=== PATIENT | male | born 1975 | race Caucasian/White ===

== ENCOUNTER 2021-07-17 10:02 | Emergency (ER) | payer OTHER ==
[~2021-07-17] VITALS: Ht 167.6 cm; Wt 104.3 kg
[~2021-07-17 10:02] MED LIST: CIPRO500 MG PO; FLOVENT DISKUS50 MCG INH; FLUTICASONE PRO16 GM NAS; METRONIDAZOLE500 MG PO; PERCOCET 5-3251 EACH PO; ZOFRAN ODT4 MG SL
[2021-07-17] MEDS ORDERED: LOSARTAN POTAS100 MG PO (11:25)
== END 2021-07-17 13:50 | disposition home or self-care (01) ==
LOC: ED 10:02
DX: E83.42 Hypomagnesemia (principal); J45.909 Unspecified asthma, uncomplicated; Z88.2 Allergy status to sulfonamides; Z79.899 Other long term (current) drug therapy
CPT/HCPCS: 80053; 83735; 85025; 99283

== ENCOUNTER 2023-01-06 13:43 | Inpatient (IN) | payer OTHER ==
[~2023-01-06] VITALS: Ht 167.6 cm; Wt 102.8 kg
[~2023-01-06 13:43] MED LIST changes: +CEPHALEXIN500 M1 PO; +LOSARTAN POTAS100 MG PO
--- OUTSIDE RECORDS SUMMARY | 2023-01-06 13:50 | XMS ---
PreManage Notification: KOBE ESPINAL Security Inside Sales Territory Manager Events No recent Security Events currently on file CRITERIA MET - [facility] - 2 Visits in 30 Days CARE PROVIDERS Kj Sanchez MD Family Medicine Current PHONE: Unknown RADHA FAITH [facility] Current FAMILY PHONE: [phone] Janet has no Care Guidelines for this patient. Danette VISIT COUNT (12 MO.) 2 [facility] TOTAL 2 NOTE: Visits indicate total known visits. ED/UCC VISIT TRACKING (12 MO.) 01/06/2023 13:43 [facility] [place] TYPE: Emergency COMPLAINT: - SHAKEY 12/25/2022 09:04 [facility] [place] TYPE: Emergency COMPLAINT: - BURNING URINATION, ABD PAIN DIAGNOSES: - Allergy status to sulfonamides - Other termite treater helper (current) drug therapy - Unspecified asthma, uncomplicated - Urinary tract infection, site not specified - Dysuria INPATIENT VISIT TRACKING (12 MO.) No inpatient visits to display in this time frame [email or web address]
[2023-01-06 18:05] VITALS: BP 107/57
[2023-01-06 20:00] VITALS: BP 102/66
[2023-01-06 21:00] VITALS: BP 103/70
[2023-01-06 22:00] VITALS: BP 100/70
[2023-01-06 23:00] VITALS: BP 100/72
[2023-01-06 23:25] VITALS: BP 100/72
[2023-01-07] VITALS (18 sets, daily range): BP systolic 98–153; BP diastolic 69–95
--- NOTE | 2023-01-07 06:15 | CONS ---
[facility] [address] [place], [place] [address] Signed DATE OF CONSULTATION: 01/06/2023 CHIEF COMPLAINT: Chills with shaking. HISTORY OF PRESENT ILLNESS: Kobe is a 47-year-old gentleman, who has history of recurring diverticulitis. He was actually hospitalized once for IV antibiotics. After that he recognizes the symptoms, so he is able to get some antibiotics and normally settles down. He was waiting to see one of the surgeons over in [place], [place], for colonoscopy. In the meantime, his job with the [employer] asked [place]. That worked out well for him, since his mother happens to live here in [place], [place]. He has been having trouble now for about a month with kind of retropubic area of pain. He has been having trouble urinating. The UA came back so called dirty. He took 2 weeks of Cipro and it never got better. He tried Pyridium and it did nothing. He tried some other medications, that were not sure, and he said nothing has worked. He was at work today and he got cold and was shaking. He had to come to the emergency room. In the emergency room, his white count is normal, but his urine is dirty and his liver function tests are elevated. The albumin is little low at 2.7. He is COVID negative. His lactic acid was high at 5.5 and is now down to 2.4 with some resuscitation antibiotics. Chest x-ray was negative. The CT scan abdomen and pelvis showed some central lobar nodules in the bilateral lung srinivasan, most likely infectious. He seems to have some thickening in the gallbladder wall with some pericholecystic fluid. He has pops-ay-lxdxxjlh left hydroureter. There is a fluid collection measuring 4.7 x 2.1 cm between the urinary bladder and sigmoid colon. He has inflammatory changes of both gutters and around both kidneys. The left worse than the right. I have been called by the ER physician with the information of sigmoid diverticulitis and the fluid collection behind his bladder. The rest of this was new to me currently. In the meantime, he has been admitted to our ICU. Overall, he says he feels better. Amazingly, he does not seem to have much abdominal pain, other than in the retropubic area. He said overall he seems to be better. His mom is with him along with our nurse. PAST MEDICAL HISTORY: Asthma, sinusitis, diverticulitis x1 requiring hospitalization, and after that he has been able to use outpatient antibiotics. He is awaiting colonoscopy. PAST SURGICAL HISTORY: Sinus surgery, corneal transplant at age 38, tonsils. SOCIAL HISTORY: He does not smoke. I think he does some marijuana. He likes to drink some Whisky and little beer every day. He is single and has no children. He does have dogs. He Electronically Signed By: KENDALL GEORGE MD 01/07/23 0615 PATIENT NAME: KOBE ESPINAL CONSULTATION DATE OF : 75 REPORT #: [id number] PHYSICIAN: KENDALL GEORGE MD PCP: KJ SANCHEZ MD REPORT IS CONFIDENTIAL AND NOT TO BE RELEASED WITHOUT AUTHORIZATION [address] [address] Signed actually lives in [place], [place], and therefore prefers the [facility] in [place], [place]. His mother is Stacy at [phone]. She happens to live here in [place], [place]. His primary care provider is Dr. Kj Sanchez, in [place], [place]. FAMILY HISTORY: None. REVIEW OF SYSTEMS: He had 10 systems reviewed and he told me about his recurring diverticulitis. ALLERGIES: Sulfa. MEDICATIONS: Fluconazole and losartan. PHYSICAL EXAMINATION: VITAL SIGNS: Blood pressure is 107/57, heart rate 115, respiratory rate 15, his temperature is 100. He is 95% on room air. He is 5 feet 6 inches at 102 kg with a body mass index of 36. GENERAL: Kobe is a 47-year-old gentleman, lying supine semi-recumbent in his ICU bed. Amazingly, he is alert, awake, and interactive. He has a cold cuff on his forehead, but he is not diaphoretic currently. He does not appear flushed. LUNGS: Clear to auscultation bilaterally. HEART: Tachycardic, but no murmur. ABDOMEN: Amazingly his abdomen is soft and flat with some minimal kind of retropubic tenderness. LABORATORY DATA: His white blood count is 9.8, neutrophils 80, hemoglobin 10.9. Creatinine is up a little bit at 1.4. Lactic acid was 5.5, it is down to 2.4. Urine showed white blood cells, leukocyte esterase, and some rare bacteria. He said he is denying any pneumaturia. Urine culture and blood cultures are pending. Total bilirubin was normal at 0.2, but the AST and ALT are up a little bit along with the alkaline phosphatase and albumin is down a little at 2.7. COVID negative. RADIOGRAPHIC STUDIES: The chest x-ray is unremarkable. The CT scan abdomen and pelvis shows the centrilobar nodules in the bilateral lower lung srinivasan, which may be infectious. He may have some gallbladder wall thickening and pericholecystic fluid. He has xpyl-vo-wgrhikbd left hydroureter. He has fluid collection measuring 4.7 x 2.1 cm between the urinary bladder and the sigmoid colon with inflammatory changes. He has perinephric inflammation in the left more than the right. Electronically Signed By: KENDALL GEORGE MD 01/07/2315 PATIENT NAME: KOBE ESPINAL CONSULTATION DATE OF : 75 REPORT #: [id number] PHYSICIAN: KENDALL GEORGE MD PCP: KJ SANCHEZ MD REPORT IS CONFIDENTIAL AND NOT TO BE RELEASED WITHOUT AUTHORIZATION [facility] [address] [place], [place] [address] Signed ASSESSMENT/PLAN: Kobe is a 47-year-old gentleman, who is dealing with recurring and fairly significant diverticulitis. He has some dysuria, but no pneumaturia. It may be that his bladder is inflamed, but not necessarily infected with a fistula. He clearly has qlye-jy-zsoagxcc left hydroureter as well. I suspect some of the liver function tests are from his sepsis. At this point, he has been admitted, started on IV fluids and some antibiotics. He initially got Zosyn, but I think we will move him over to cefepime and Flagyl. In the meantime, we are going to send our images to our [facility] well as [facility] and get their input. We do not have a urologist available to us for this gentleman for left ureteral stent. If he could get this taken care of nonoperatively and allow this fall to settle down, he could have a single surgery in a much safer setting in the months ahead. I have explained this to Kobe and his mom. They have expressed understanding, agreed to above plan. MD ИВАН Santana/MARGARITAL /[id number] cc: MD Kj Santana MD Copies: KENDALL GEORGE MD, BRYAN MD ~ Electronically Signed By: KENDALL GEORGE MD 01/07/23 0615 PATIENT NAME: KOBE ESPINAL CONSULTATION DATE OF : 75 REPORT #: [id number] PHYSICIAN: KENDALL GEORGE MD PCP: KJ SANCHEZ MD REPORT IS CONFIDENTIAL AND NOT TO BE RELEASED WITHOUT AUTHORIZATION
[2023-01-07] MEDS ORDERED: DOXYCYCLINE HY100 M3 PO (14:37)
[2023-01-07] MEDS ORDERED: FLOVENT HFA12 GM INH (14:38)
[2023-01-07] MEDS ORDERED: VENTOLIN HFA18 GM INH (14:39)
[2023-01-07] MEDS ORDERED: SEREVENT DISKU50 MCG INH (14:39)
[2023-01-07] MEDS ORDERED: TUMS200 MG PO (16:20)
[2023-01-07] MEDS ORDERED: ZYRTEC10 MG PO (16:20)
[2023-01-08] VITALS (9 sets, daily range): BP systolic 104–125; BP diastolic 69–87
--- NOTE | 2023-01-11 07:27 | EKG ---
[facility] [address] [facility] [place] [address] Signed Sinus tachycardia Prolonged QT Abnormal ECG No previous ECGs available Confirmed by JASON FLETCHER MD ([id number]) on 01/11/2023 7:27:03 AM Electronically Signed By: JASON FLETCHER MD 01/11/23 0727 PATIENT NAME: KOBE ESPINAL Electrocardiogram DATE OF : 75 PHYSICIAN: JASON FLETCHER MD REPORT #: [id number] REPORT IS CONFIDENTIAL AND NOT TO BE RELEASED WITHOUT AUTHORIZATION
--- NOTE | 2023-01-14 09:08 | DS ---
[facility] [address] [place], [place] [address] Signed ADMISSION DATE: 01/06/2023 DISCHARGE DATE: 01/08/2023 FINAL DIAGNOSES: 1. Perforated sigmoid diverticulitis with pelvic abscess. 2. Gram-negative rods in the blood. 3. Left hydroureter. 4. Alcohol use. PROCEDURES: 1. CT scan of abdomen and pelvis. 2. Echocardiogram. HISTORY OF PRESENT ILLNESS: Kobe is a 47-year-old gentleman, who said he used to drink rather heavily. He said he used to weigh over 330 pounds. His was diagnosed with MS and she decided it was time to separate the marriage. He told me he has lost an enormous amount of weight and he has cut his drinking down to one pint of whiskey a day along with some beer. He normally lives in [place], [place] and works at [employer]. They asked him to come hour over the mountains to [place], [place] to work at our local [employer]. His mother Stacy happens to live here in [place], [place]. Her phone number is [phone]. In addition, Kobe likes to smoke some marijuana. He said he had his 1st episode of diverticulitis about 10 years ago. He in the hospital, but he improved with IV antibiotics. Unfortunately, he has never had a colonoscopy. He gets intermittent bouts of diverticulitis and therefore undergoes outpatient p.o. antibiotics through his primary care provider. On this occasion, he was feeling some sensation in the retropubic area and had called his primary care provider. His urine came back dirty, but not really bacteria. He was given Cipro and it did not seem to help. When he called back to the urine was still dirty and he gave him another round of Cipro. This went on for a couple of weeks without improvement. He was at work and he was having tachycardia and shaking and diaphoretic. He came to the local emergency room for evaluation. HOSPITAL COURSE: Kobe was seen in our ER and his white count was normal, but his urine did show the white blood cells, leukocyte esterase, but only rare bacteria. He does not describe dysuria or pneumaturia. Rather, he has some urinary hesitancy. We could see his liver function tests were a little elevated and his lactic acid was quite elevated as well. Chest x-ray was unremarkable. The CT scan showed some possible nodules in the bilateral lower lobes may be infectious. The radiologist recommended followup in about three months. There seemed to be a little gallbladder wall thickening and pericholecystic Electronically Signed By: KENDALL GEORGE MD 01/14/23 0908 PATIENT NAME: KOBE ESPINAL DISCHARGE SUMMARY DATE OF : 75 REPORT #: [id number] PHYSICIAN: KENDALL GEORGE MD PCP: REID JACKSON MD REPORT IS CONFIDENTIAL AND NOT TO BE RELEASED WITHOUT AUTHORIZATION [address] [address] Signed fluid. However he has an abscess between the bladder and the sigmoid colon and he has inflammatory changes up both gutters with inflammation on both kidneys, the left being worse than the right. He also has left hydroureter. He got an initial dose of Zosyn with IV fluids and was improving with that. I had been asked to admit him as a general surgeon on-call. We switched him over to cefepime and Flagyl and we were able to get his lactic acid back down to normal within a few hours. Eventually, his cultures came back with gram-negative rods in his blood. It is amazing how well he has responded to his treatment. We did allow him to clear liquids initially now full liquids and that seemed to be improved. He has had multiple bowel movements. He is still urinating well and again is clear yellow urine. However, he does have this abscess, it is quite troublesome between the bladder and the sigmoid colon. I explained to Kobe he had tremendous inflammatory changes in the pelvis and up his gutters. He is best served by Interventional Radiology with percutaneous drainage. Then, he could have the surgery at a later date. Otherwise, he would certainly end up with a colostomy for sure. There was some consideration that he might need a left ureteral stent. Once the abscess is drained, if that persist, and of course, he would need a stent. We were planning on doing that tomorrow if he was still in our hospital. In addition, he was improving. I did run this by our [facility], particularly the Colorectal Surgery service. They were kind enough to accept him in transfer understanding that he needs a higher level of care than what we can provide at our 25-bed critical access hospital. I also rendered by one of the colorectal surgeons at our [facility] who was in agreement. DISCHARGE PLANS AND MEDICATIONS: Kobe has been transferred over to our [facility] under the care of Dr. Deshaun Alfaro. Also, I did speak with the hospitalist Dr. Pedro Hall. I did give Kobe our brochure on diverticulitis and we looked at it together. He understands the concept of percutaneous drainage and possible left ureteral stent. He understands that he will likely have surgery later once he has improved. In addition, he has never had a colonoscopy. He was trying to get to a colonoscopy more recently, but with the change from living in [place], [place] over to [place], he never made those arrangements. He had expressed understanding and agreed with the above plan. We look forward to input from our [facility]. MD ИВАН Santana/AIDA /[id number] Electronically Signed By: KENDALL GEORGE MD 01/14/23 0908 PATIENT NAME: KOBE ESPINAL DISCHARGE SUMMARY DATE OF : 75 REPORT #: [id number] PHYSICIAN: KENDALL GEORGE MD PCP: REID JACKSON MD REPORT IS CONFIDENTIAL AND NOT TO BE RELEASED WITHOUT AUTHORIZATION [address] [address] Signed cc: MD Deshaun Fan MD Andrew L Bower, MD Copies: REID JACKSON MD, ANDREW L MD ~ Electronically Signed By: KENDALL GEORGE MD 01/14/23 0908 PATIENT NAME: KOBE ESPINAL DISCHARGE SUMMARY DATE OF : 75 REPORT #: [id number] PHYSICIAN: KENDALL GEORGE MD PCP: REID JACKSON MD REPORT IS CONFIDENTIAL AND NOT TO BE RELEASED WITHOUT AUTHORIZATION
== END 2023-01-08 11:42 | disposition short-term general hospital (02) | DRG 391 ==
LOC: ED 13:43 → CCU 17:14
PROVIDERS: ADMIT Colon & Rectal Surgery; ATTEND Colon & Rectal Surgery
PROC: HZ2ZZZZ Detoxification Services for Substance Abuse Treatment (ICD-10-PCS; principal; 2023-01-06)
DX: K57.20 Diverticulitis of large intestine with perforation and abscess without bleeding (principal); K65.1 Peritoneal abscess; N13.4 Hydroureter; N13.30 Unspecified hydronephrosis; Z20.822 Contact with and (suspected) exposure to COVID-19; R94.31 Abnormal electrocardiogram [ECG] [EKG]; F10.20 Alcohol dependence, uncomplicated; J45.909 Unspecified asthma, uncomplicated; E83.39 Other disorders of phosphorus metabolism; E83.42 Hypomagnesemia; F17.200 Nicotine dependence, unspecified, uncomplicated; Z94.7 Corneal transplant status; Z88.2 Allergy status to sulfonamides; Z90.89 Acquired absence of other organs
CPT/HCPCS: 36415; 71045; 74177; 80048; 80053; 81001; 83605; 83735; 83880; 84100; 85025; 85610; 85730; 87040; 87088; 87502; 93005; 93010; 93306; 94640; 94760; 96361; 96375; 99285-25; 99406; A9270; A9270-GY; C9113; J0692; J1650; J2060; J2543; J3411; J3420; J3475; J7060; J7121; Q9967; U0003

== ENCOUNTER 2023-03-13 10:59 | Emergency (ER) | payer OTHER ==
[~2023-03-13] VITALS: Ht 167.6 cm; Wt 95.0 kg
[~2023-03-13 10:59] MED LIST changes: +DOXYCYCLINE HY100 M3 PO; +FLOVENT HFA12 GM INH; +SEREVENT DISKU50 MCG INH; +TUMS200 MG PO; +VENTOLIN HFA18 GM INH; +ZYRTEC10 MG PO
[2023-03-13 16:49] VITALS: BP 165/107
== END 2023-03-13 16:55 | disposition short-term general hospital (02) ==
LOC: ED 10:59
DX: K57.20 Diverticulitis of large intestine with perforation and abscess without bleeding (principal); Z20.822 Contact with and (suspected) exposure to COVID-19; J45.909 Unspecified asthma, uncomplicated; Z88.2 Allergy status to sulfonamides; Z79.899 Other long term (current) drug therapy
CPT/HCPCS: 36415; 74177; 80053; 81003; 85025; 87502; 99284-25; C9803; Q9967; U0002